=== PATIENT | female | born 1980 | race Caucasian/White ===

== ENCOUNTER 2017-08-11 10:51 | Emergency (ER) | payer MEDICAID ==
[~2017-08-11] VITALS: Ht 165.1 cm; Wt 89.4 kg
[2017-08-11 10:55] VITALS: BP 131/90
== END 2017-08-11 12:48 | disposition home or self-care (01) ==
LOC: ED 12:38
DX: J01.00 Acute maxillary sinusitis, unspecified (principal); J01.10 Acute frontal sinusitis, unspecified
CPT/HCPCS: 71046; 99284

== ENCOUNTER 2017-09-04 18:37 | Emergency (ER) | payer MEDICAID ==
[~2017-09-04] VITALS: Ht 165.1 cm; Wt 90.0 kg
[2017-09-04 18:44] VITALS: BP 142/84
[2017-09-04] MEDS ORDERED: IBUPROFEN 200 MG TABLET PO ONE (19:30)
== END 2017-09-04 20:03 | disposition home or self-care (01) ==
LOC: ED 19:32
DX: S93.492A Sprain of other ligament of left ankle, initial encounter (principal); W01.0XXA Fall on same level from slipping, tripping and stumbling without subsequent striking against object, initial encounter; Y93.89 Activity, other specified; Y99.8 Other external cause status; Y92.89 Other specified places as the place of occurrence of the external cause
CPT/HCPCS: 99284

== ENCOUNTER 2017-11-26 15:25 | Emergency (ER) | payer MEDICAID ==
[~2017-11-26] VITALS: Ht 165.1 cm; Wt 90.1 kg
[2017-11-26 15:30] VITALS: BP 136/86
== END 2017-11-26 16:23 | disposition home or self-care (01) ==
LOC: ED 16:00
DX: S62.336A Displaced fracture of neck of fifth metacarpal bone, right hand, initial encounter for closed fracture (principal); W22.8XXA Striking against or struck by other objects, initial encounter; Y93.89 Activity, other specified; Y99.8 Other external cause status; Y92.009 Unspecified place in unspecified non-institutional (private) residence as the place of occurrence of the external cause
CPT/HCPCS: 29125; 99284

== ENCOUNTER 2018-04-09 13:28 | Emergency (ER) | payer MEDICAID ==
[~2018-04-09] VITALS: Ht 165.1 cm; Wt 93.4 kg
[2018-04-09 13:31] VITALS: BP 116/79
[2018-04-09] MEDS ORDERED: DEXAMETHASONE 4 MG TABLET PO ONE (14:00)
[2018-04-09] MEDS ORDERED: DEXAMETHASONE 4 MG TABLET ONE (14:22)
== END 2018-04-09 14:25 | disposition home or self-care (01) ==
LOC: ED 14:22
DX: J01.00 Acute maxillary sinusitis, unspecified (principal); Z87.891 Personal history of nicotine dependence
CPT/HCPCS: 99283

== ENCOUNTER 2018-05-04 10:42 | Emergency (ER) | payer MEDICAID ==
[~2018-05-04] VITALS: Ht 165.1 cm; Wt 93.0 kg
[2018-05-04 10:52] VITALS: BP 123/86
--- NOTE | 2018-05-04 11:04 | NUR ---
[facility] [place] [facility]
== END 2018-05-04 11:39 | disposition home or self-care (01) ==
LOC: ED 11:29
DX: B34.9 Viral infection, unspecified (principal)
CPT/HCPCS: 99283

== ENCOUNTER 2018-05-07 08:55 | Emergency (ER) | payer MEDICAID ==
[~2018-05-07] VITALS: Ht 165.1 cm; Wt 94.2 kg
[2018-05-07 09:03] VITALS: BP 124/87
== END 2018-05-07 10:06 | disposition home or self-care (01) ==
LOC: ED 09:29
DX: H65.01 Acute serous otitis media, right ear (principal); H10.232 Serous conjunctivitis, except viral, left eye; H92.02 Otalgia, left ear
CPT/HCPCS: 99283

== ENCOUNTER 2018-06-07 17:33 | Emergency (ER) | payer MEDICAID ==
[~2018-06-07] VITALS: Ht 165.1 cm; Wt 97.2 kg
[2018-06-07 18:02] LABS: BASOPHILS # (AUTO) 0.05 x10^3/uL (0-0.1); BASOPHILS % (AUTO) 1 % (0-1); EOSINOPHILS # (AUTO) 0.07 x10^3/uL (0-0.4); EOSINOPHILS % (AUTO) 1 % (1-7); LYMPHOCYTES # (AUTO) 2.29 x10^3/uL (1-3.4); LYMPHOCYTES % (AUTO) 29 % (22-44); MD NO; MEAN CORPUSCULAR HEMOGLOBIN 31.6 pg (27.0-34.8); MEAN CORPUSCULAR HGB CONC 34.7 g/dL (32.4-35.8); MEAN CORPUSCULAR VOLUME 90.9 fL (80-100); MEAN PLATELET VOLUME 7.7 fL (7.4-10.4); MONOCYTES # (AUTO) 0.85 x10^3/uL (0.2-0.8); MONOCYTES % (AUTO) 11 % (2-9); NEUTROPHILS # (AUTO) 4.75 x10^3/uL (1.8-6.8); NEUTROPHILS % (AUTO) 59 % (42-75); PLATELET COUNT 356 x10^3/uL (130-400); RED BLOOD COUNT 4.39 x10^6/uL (3.82-5.3)
--- NOTE | 2018-06-07 18:06 | NUR ---
Pt reports abd bloating and "heartburn" x 2-3 weeks w/left flank pain. Finished amoxicillin prescription approx 3 weeks ago.
[2018-06-07 18:11] LABS: ALANINE AMINOTRANSFERASE 37 U/L (12-78); ALBUMIN 4.2 g/dL (3.4-5.0); ANION GAP 6 mmol/L (5-15); CALCIUM 8.8 mg/dL (8.5-10.1); CHLORIDE 107 mmol/L (98-107)
[2018-06-07 18:11] LABS: CULTURE INDICATED? NO; MICROSCOPIC NOT IND
[2018-06-07] MEDS ORDERED: MAALOX/HYOSCYAMINE/LIDOCAINE 45 ML BTL ONE (18:12)
[2018-06-07 18:16] LABS: ALKALINE PHOSPHATASE 84 U/L (45-117); BILIRUBIN,TOTAL 0.2 mg/dL (0.2-1.0); CREATININE 1.11 mg/dL (0.55-1.02); TOTAL PROTEIN 7.7 g/dL (6.4-8.2)
[2018-06-07] MEDS ORDERED: MAALOX/HYOSCYAMINE/LIDOCAINE 45 ML BTL PO ONE (18:30)
--- NOTE | 2018-06-07 18:41 | NUR ---
Pt reports pain relief to abd after gi cocktail, states she still has mild flank pain
[2018-06-07 19:24] VITALS: BP 119/80
--- NOTE | 2018-06-07 19:24 | NUR ---
LUNCH RN: PT RESTING ON GURNOE IN NAD. VITALS STABLE. CHART UP FOR RECHECK
== END 2018-06-07 20:24 | disposition home or self-care (01) ==
LOC: ED 18:09
DX: K21.9 Gastro-esophageal reflux disease without esophagitis (principal); R11.2 Nausea with vomiting, unspecified; R19.7 Diarrhea, unspecified
CPT/HCPCS: 36415; 76700; 80053; 81003; 83690; 84703; 85025; 99284